=== PATIENT | female | born 1995 ===

== ENCOUNTER 2017-10-05 08:28 | Emergency (ER) | payer MEDICAID ==
[2017-10-05] MEDS ORDERED: NS(*) 0.9% 1000 ML BAG 1,000 ML IV ONE (08:44)
[2017-10-05] MEDS ORDERED: GI COCKTAIL 60 ML BTL PO PRN (08:45)
[2017-10-05] MEDS ORDERED: ONDANSETRON 4 MG/2 ML VIAL IVP ONE (08:45)
[2017-10-05] MEDS ORDERED: MAG HYD/AL HYD/SIMETH 30ML UDC PO ONE (08:50)
[2017-10-05] MEDS ORDERED: ATRO/SCOPOL/HYOSCY/PB 5 ML ELX PO ONE (08:50)
[2017-10-05] MEDS ORDERED: LIDOCAINE 2% VISC SLN 15ML UDC PO ONE (08:50)
[2017-10-05 08:53] LABS: PLATELET COUNT, AUTOMATED 222 K/uL (150-450)
[2017-10-05 09:05] LABS: INR 0.92
--- NOTE | 2017-10-05 09:29 | RADIOLOGY IMAGING REPORT ---
FACILITY: [facility] PATIENT NAME: Tatianna Strickland : 1995 MR: [id number] V: [id number] EXAM DATE: ORDERING PHYSICIAN: MARIANA LEWIS TECHNOLOGIST: Location: [facility] - [place], [place] Patient: Tatianna Strickland : 1995 Visit/Account:[id number] Date of Sevice: 10/05/2017 2 VIEWS CHEST INDICATION: Smoker COMPARISON: None available FINDINGS: Heart size within normal limits. Lungs are clear without acute infiltrate or consolidation. No effusion or pneumothorax. No acute marecl[place] ny finding IMPRESSION: 1. No acute cardiopulmonary process. Report Dictated By: Mariana Arrington MD at 10/05/2017 9:24 AM Report E-Signed By: Mariana Arrington MD at 10/05/2017 9:25 AM WSN:[email or web address]
--- NOTE | 2017-10-05 09:52 | ER Report ---
History and Physical Time Seen By MD: 08:35 Hx. of Stated Complaint: PATIENT REPORTS LOWER ABDOMINAL PAIN FOR THE LAST FEW DAYS. SHE IS REPORTING VOMITING AND DIARRHEA ALSO FEELS LIKE THE PAIN IS MOVING UPWARDS HPI/ROS CHIEF COMPLAINT: Abdominal pain HISTORY OF PRESENT ILLNESS: Otherwise healthy 19-year-old female states she has a long history of gastritis and possibly gastric ulcers comes emergency Department today with abdominal pain mostly in the epigastrium worse after eating was last night patient denies any chest pain shortness of breath fever chills she said that she's had one episode of emesis prior to presentation and one episode of loose stool patient states the pain is sharp stabbing localized to the epigastrium no loosening relieving factors other than eating food and has no surgical history patient has no additional complaints at this time REVIEW OF SYSTEMS: Respiratory: No cough, no dyspnea. Cardiovascular: No chest pain, no palpitations. Gastrointestinal: Vomiting diarrhea epigastric abdominal pain Musculoskeletal: No back pain. Remainder of the 14 system rev: Yes Allergies: Coded Allergies: Sulfa (Sulfonamide Antibiotics) (Verified Allergy, Severe, 10/05/17) Home Meds No Active Prescriptions or Reported Meds Reviewed Nurses Notes: Yes Old Medical Records Reviewed: Yes Constitutional Vital Sign - Last 24 Hours 10/05/17 10/05/17 10/05/17 10/05/17 08:33 08:37 08:45 09:00 Temp 98.0 Pulse 67 Resp 20 B/P (MAP) 120/87 120/87 (98) 111/73 (86) 111/77 (88) Pulse Ox 96 O2 Delivery Room Air 10/05/17 10/05/17 10/05/17 09:15 09:28 09:45 Pulse 69 B/P (MAP) 114/83 (93) 117/77 (90) Pulse Ox 99 Physical Exam General Appearance: The patient is alert, has no immediate need for airway protection and no current signs of toxicity. [ ] Eyes: Pupils equal and round no injection. Respiratory: Chest is non tender, lungs are clear to auscultation. Cardiac: regular rate and rhythm [ ] Gastrointestinal: Abdomen mild tenderness to deep palpation of right upper q uadrant positive Cartagena sign mild epigastric pain and tenderness no rebound or guarding no masses Musculoskeletal: Neck: Neck is supple and non tender. Extremities have full range of motion and are non tender. Skin: No rashes or lesions. [ ] DIFFERENTIAL DIAGNOSIS: After history and physical exam differential diagnosis was considered for epigastric pain secondary to either gastritis or gastric ulcer cholecystitis cholangitis choledocholithiasis Medical Decision Making Data Points Result Diagram: 10/05/17 0840 10/05/17 0840 Laboratory Hematology Test 10/05/17 08:40 10/05/17 09:45 Red Blood Count 5.03 M/uL (4.17-5.56) Mean Corpuscular Volume 92.0 fL (80.0-96.0) Mean Corpuscular Hemoglobin 32.0 pg (26.0-33.0) Mean Corpuscular Hemoglobin Concent 34.8 g/dL (32.0-36.0) Red Cell Distribution Width 13.2 % (11.5-14.5) Mean Platelet Volume 8.6 fL (7.2-11.1) Neutrophils (%) (Auto) 77.1 % (39.4-72.5) Lymphocytes (%) (Auto) 16.8 % (17.6-49.6) Monocytes (%) (Auto) 3.6 % (4.1-12.4) Eosinophils (%) (Auto) 2.0 % (0.4-6.7) Basophils (%) (Auto) 0.5 % (0.3-1.4) Nucleated RBC Relative Count (auto) 0.1 /100WBC Neutrophils # (Auto) 5.7 K/uL (2.0-7.4) Lymphocytes # (Auto) 1.2 K/uL (1.3-3.6) Monocytes # (Auto) 0.3 K/uL (0.3-1.0) Eosinophils # (Auto) 0.1 K/uL (0.0-0.5) Basophils # (Auto) 0.0 K/uL (0.0-0.1) Nucleated RBC Absolute Count (auto) 0.00 K/uL Prothrombin Time 12.3 seconds (12.0-14.4) Prothromb Time International Ratio 0.92 Activated Partial Thromboplast Time 29 seconds (23-35) Sodium Level 145 mmol/L (137-145) Potassium Level 3.9 mmol/L (3.5-5.0) Chloride Level 108 mmol/L (98-107) Carbon Dioxide Level 23 mmol/L (22-31) Blood Urea Nitrogen 14 mg/dl (7-18) Creatinine 0.70 mg/dl (0.52-1.04) Glomerular Filtration Rate Calc > 60.0 Random Glucose 105 mg/dl (75-110) Calcium Level 9.6 mg/dl (8.4-10.2) Total Bilirubin 0.4 mg/dl (0.2-1.3) Aspartate Amino Transf (AST/SGOT) 29 U/L (0-35) Alanine Aminotransferase (ALT/SGPT) 27 U/L (0-56) Alkaline Phosphatase 50 U/L (0-126) Total Protein 7.9 g/dl (6.3-8.2) Albumin 4.7 g/dl (3.5-5.0) Lipase 78 U/L (23-300) Serum Alcohol < 10 mg/dl Urine Color Yellow Urine Clarity Clear Urine pH 5.0 pH (4.8-9.5) Urine Specific [place] 1.019 Urine Protein Negative mg/dL (NEGATIVE) Urine Glucose (UA) Negative mg/dL (NEGATIVE) Urine Ketones Negative mg/dL (NEGATIVE) Urine Blood Negative (NEGATIVE) Urine Nitrite Negative (NEGATIVE) Urine Bilirubin Negative (NEGATIVE) Urine Urobilinogen Negative mg/dL (0.2-1.9) Urine Leukocyte Esterase Negative (NEGATIVE) Urine RBC None /HPF (0-2/HPF) Urine WBC 1 /HPF (0-5/HPF) Urine Squamous Epithelial Cells Many /LPF (</=FEW) Urine Bacteria Negative /HPF (NONE-FEW) Urine Mucus Few /HPF (NONE-FEW) Chemistry Test 10/05/17 08:40 10/05/17 09:45 White Blood Count 7.4 k/uL (4.5-11.0) Red Blood Count 5.03 M/uL (4.17-5.56) Hemoglobin 16.1 g/dL (12.0-16.0) Hematocrit 46.3 % (34.0-47.0) Mean Corpuscular Volume 92.0 fL (80.0-96.0) Mean Corpuscular Hemoglobin 32.0 pg (26.0-33.0) Mean Corpuscular Hemoglobin Concent 34.8 g/dL (32.0-36.0) Red Cell Distribution Width 13.2 % (11.5-14.5) Platelet Count 222 K/uL (150-450) Mean Platelet Volume 8.6 fL (7.2-11.1) Neutrophils (%) (Auto) 77.1 % (39.4-72.5) Lymphocytes (%) (Auto) 16.8 % (17.6-49.6) Monocytes (%) (Auto) 3.6 % (4.1-12.4) Eosinophils (%) (Auto) 2.0 % (0.4-6.7) Basophils (%) (Auto) 0.5 % (0.3-1.4) Nucleated RBC Relative Count (auto) 0.1 /100WBC Neutrophils # (Auto) 5.7 K/uL (2.0-7.4) Lymphocytes # (Auto) 1.2 K/uL (1.3-3.6) Monocytes # (Auto) 0.3 K/uL (0.3-1.0) Eosinophils # (Auto) 0.1 K/uL (0.0-0.5) Basophils # (Auto) 0.0 K/uL (0.0-0.1) Nucleated RBC Absolute Count (auto) 0.00 K/uL Prothrombin Time 12.3 seconds (12.0-14.4) Prothromb Time International Ratio 0.92 Activated Partial Thromboplast Time 29 seconds (23-35) Glomerular Filtration Rate Calc > 60.0 Calcium Level 9.6 mg/dl (8.4-10.2) Total Bilirubin 0.4 mg/dl (0.2-1.3) Aspartate Amino Transf (AST/SGOT) 29 U/L (0-35) Alanine Aminotransferase (ALT/SGPT) 27 U/L (0-56) Alkaline Phosphatase 50 U/L (0-126) Total Protein 7.9 g/dl (6.3-8.2) Albumin 4.7 g/dl (3.5-5.0) Lipase 78 U/L (23-300) Serum Alcohol < 10 mg/dl Urine Color Yellow Urine Clarity Clear Urine pH 5.0 pH (4.8-9.5) Urine Specific [place] 1.019 Urine Protein Negative mg/dL (NEGATIVE) Urine Glucose (UA) Negative mg/dL (NEGATIVE) Urine Ketones Negative mg/dL (NEGATIVE) Urine Blood Negative (NEGATIVE) Urine Nitrite Negative (NEGATIVE) Urine Bilirubin Negative (NEGATIVE) Urine Urobilinogen Negative mg/dL (0.2-1.9) Urine Leukocyte Esterase Negative (NEGATIVE) Urine RBC None /HPF (0-2/HPF) Urine WBC 1 /HPF (0-5/HPF) Urine Squamous Epithelial Cells Many /LPF (</=FEW) Urine Bacteria Negative /HPF (NONE-FEW) Urine Mucus Few /HPF (NONE-FEW) Coagulation Test 10/05/17 08:40 Prothrombin Time 12.3 seconds Prothromb Time International Ratio 0.92 Activated Partial Thromboplast Time 29 seconds Toxicology Test 10/05/17 08:40 Serum Alcohol < 10 mg/dl Urinalysis Test 10/05/17 09:45 Urine Color Yellow Urine Clarity Clear Urine pH 5.0 pH (4.8-9.5) Urine Specific [place] 1.019 Urine Protein Negative mg/dL (NEGATIVE) Urine Glucose (UA) Negative mg/dL (NEGATIVE) Urine Ketones Negative mg/dL (NEGATIVE) Urine Blood Negative (NEGATIVE) Urine Nitrite Negative (NEGATIVE) Urine Bilirubin Negative (NEGATIVE) Urine Urobilinogen Negative mg/dL (0.2-1.9) Urine Leukocyte Esterase Negative (NEGATIVE) Urine RBC None /HPF (0-2/HPF) Urine WBC 1 /HPF (0-5/HPF) Urine Squamous Epithelial Cells Many /LPF (</=FEW) Urine Bacteria Negative /HPF (NONE-FEW) Urine Mucus Few /HPF (NONE-FEW) ED Course/Re-evaluation ED Course 22-year-old female epigastric pain ultrasound shows no gallstones labs are negative most likely this is either gastritis or inflammation of an existing also have her follow-up with general surgery surgery for possible upper GI scope we'll start her on Protonix Decision to Disposition Date: Oct 05, 2017 Decision to Disposition Time: 10:26 Depart Departure Latest Vital Signs Vital Signs Date Time Temp Pulse Resp B/P (MAP) Pulse Ox O2 Delivery O2 Flow Rate FiO2 10/05/17 09:45 117/77 (90) 10/05/17 09:28 69 99 10/05/17 08:33 98.0 20 Room Air Impression: Primary Impression: Gastritis Condition: Improved Disposition: HOME OR SELF-CARE Referrals: GENI THOMAS MD 5 Days New Scripts Pantoprazole Sodium (PROTONIX) 40 Mg Granpkt.dr 40 MG PO QDAY for 30 Days, #30 PACK Prov: MARIANA LEWIS MD 10/05/17 Patient Instructions: Gastritis (DC) MARIANA LEWIS MD Oct 05, 2017 09:52
--- NOTE | 2017-10-05 10:14 | RADIOLOGY IMAGING REPORT ---
FACILITY: [facility] - [place] PATIENT NAME: Tatianna Strickland : 1995 MR: [id number] V: [id number] EXAM DATE: ORDERING PHYSICIAN: MARIANA LEWIS TECHNOLOGIST: [facility] Patient: Tatianna Strickland : 1995 Visit/Account:[id number] Date of Sevice: 10/05/2017 GALLBLADDER HISTORY: Pain COMPARISON: None. FINDINGS: Gallbladder: There is no demonstration of gallbladder stones sludge gallbladder wall thickening or pe richolecystic fluid. There is a negative [place] sign by technologist notation Liver: Negative. Common duct: Normal, 2.3 mm diameter. Pancreas: Partially obscured by bowel, visualized aspects unremarkable. Right kidney: Right kidney appears unremarkable with no evidence of hydronephrosis. The right kidney measures 11.3 x 4.6 x 5.3 cm Upper abdominal aorta and IVC: Patent. Ascites: None visualized. IMPRESSION: Unremarkable right upper quadrant ultrasound Report Dictated By: Olivia Stoner MD at 10/05/2017 10:09 AM Report E-Signed By: Olivia Stoner MD at 10/05/2017 10:11 AM WSN:[email or web address]
[2017-10-05 10:15] VITALS: BP 114/80
[2017-10-05] MEDS ORDERED: PANT40SU3 PO (10:29)
== END 2017-10-05 10:38 | disposition home or self-care (01) ==
LOC: ER 08:35
DX: K29.70 Gastritis, unspecified, without bleeding (principal)
CPT/HCPCS: 71046; 76705; 81001; 83690; 85025; 85610; 85730; 96361; 96374; 99284; G0480; J2405; J7030; 80320; 82040; 82247; 82310; 82374; 82435; 82565; 82947; 84075; 84132; 84155; 84295; 84450; 84460; 84520